=== PATIENT | male | born 1965 | race Caucasian/White ===

== ENCOUNTER 2021-04-12 21:16 | Inpatient (IN) | payer MEDICARE, MEDICAID ==
[~2021-04-12] VITALS: Ht 170.2 cm; Wt 118.8 kg
[2021-04-12 22:00] VITALS: BP 136/79
[2021-04-13] VITALS (8 sets, daily range): BP systolic 92–129; BP diastolic 60–75
[2021-04-13 06:30] LABS: BASOPHILS % 0.3 % (0.0-2.0); EOSINOPHILS % 2.8 % (0.0-5.0); HEMATOCRIT. 32.6 % (42.0-52.0); HEMOGLOBIN. 10.4 g/dL (14.0-18.0); LYMPHOCYTES % 8.4 % (20.0-50.0); MEAN CORPUSCULAR HEMOGLOBIN 25.8 pg (28.0-32.0); MEAN CORPUSCULAR VOLUME 81.2 fL (80.0-94.0); MEAN PLATELET VOLUME 7.7 fl (7.4-10.4); MONOCYTES % 6.5 % (2.0-8.0); PLATELET 334 x1000/uL (130-400); RED BLOOD CELL COUNT 4.02 mill/uL (4.7-6.1); RED CELL DISTRIBUTION WIDTH 21.9 % (11.6-14.6)
[2021-04-13] MEDS ORDERED: ATOR20TA65 PO (08:28)
[2021-04-13] MEDS ORDERED: TEMA15CA PO (08:28)
[2021-04-13] MEDS ORDERED: LANTUSUD SUBCUT (08:28)
[2021-04-13] MEDS ORDERED: COLL30OI TP (08:28)
[2021-04-13] MEDS ORDERED: TRAZ-251 PO (08:28)
[2021-04-13] MEDS ORDERED: FURO40TA5 PO (08:28)
[2021-04-13] MEDS ORDERED: ATOR10TA69 PO (08:28)
[2021-04-13] MEDS ORDERED: METF-416 PO ×2 (08:28→10:20)
[2021-04-13] MEDS ORDERED: SIMV10TA97 PO (08:28)
[2021-04-13] MEDS ORDERED: GABA800T97 PO (08:28)
[2021-04-13 08:30] LABS: CHLORIDE 100 mEq/L (98-107)
[2021-04-13] MEDS ORDERED: ATORVASTATIN CALCIUM 20MG TABLET PO SCH (09:15)
[2021-04-13] MEDS ORDERED: FUROSEMIDE 40MG TABLET PO SCH (09:15)
[2021-04-13] MEDS ORDERED: ENOXAPARIN 40MG/0.4ML SYR SUBCUT SCH (10:00)
[2021-04-13] MEDS ORDERED: DEXTROSE 50% WATER 50ML SYRINGE IV PRN (10:00)
[2021-04-13] MEDS ORDERED: ACETAMINOPHEN 325MG TABLET PO PRN (10:00)
[2021-04-13] MEDS ORDERED: MAGNESIUM/ALUMINUM HYDROXIDE/SIMETHICONE 30ML UDC PO PRN (10:00)
[2021-04-13] MEDS ORDERED: IPRATROPIUM/ALBUTEROL 0.5-3(2.5)MG/3ML NEB NEB PRN (10:00)
[2021-04-13] MEDS ORDERED: NITROGLYCERIN 0.4MG TABLET SL SL PRN (10:00)
[2021-04-13] MEDS ORDERED: GUAIFENESIN 200MG/10ML SUGAR FREE UDC PO PRN (10:00)
[2021-04-13] MEDS ORDERED: CLONIDINE 0.1MG TABLET PO PRN (10:00)
[2021-04-13] MEDS ORDERED: NALOXONE HCL 0.4MG/ML VIAL IV PRN (11:30)
[2021-04-13 12:26] LABS: FOLIC ACID (FOLATE) SERUM 19.8 ng/mL (>5.38)
[2021-04-13] MEDS: INSULIN LISPRO 100 UNITS/ML SUBCUT SCH ×3 (12:33→20:58)
[2021-04-13] MEDS: BLOOD SUGAR DIAGNOSTIC STRIP TEST SCH ×3 (12:33→20:58)
[2021-04-13] MEDS: GABAPENTIN SOLN 300MG/6ML UDC GT SCH ×2 (13:45→22:47)
[2021-04-13] MEDS: ENOXAPARIN 30MG/0.3ML SYR SUBCUT SCH ×2 (13:46→20:57)
[2021-04-13] MEDS ORDERED: GABAPENTIN 400MG CAPSULE PO SCH (14:00)
[2021-04-13 14:14] LABS: T4 FREE 1.18 ng/dL (0.76-1.46)
[2021-04-13] MEDS ORDERED: MEDICATION NOT ON FORMULARY EA (Metformin Hcl 1 TAB) PO SCH (17:00)
[2021-04-13 17:11] LABS: CREATINE KINASE 26 IU/L (39-308); CREATINE KINASE MB FRACTION 1.5 ng/mL (0.5-3.6)
[2021-04-13] MEDS: METFORMIN HCL 500MG TABLET GT SCH (18:09)
[2021-04-13] MEDS: ATORVASTATIN CALCIUM 10MG TABLET GT SCH (20:58)
[2021-04-13] MEDS: ASCORBIC ACID 500 MG TABLET PO SCH (20:58)
[2021-04-13] MEDS: TRAZODONE HCL 50MG TABLET GT SCH (20:58)
[2021-04-13] MEDS: FAMOTIDINE 20MG TABLET GT SCH (20:58)
[2021-04-13] MEDS ORDERED: MEDICATION NOT ON FORMULARY EA (Simvastatin 1 TAB) PO SCH (21:00)
[2021-04-13] MEDS ORDERED: TEMAZEPAM 15MG CAPSULE GT PRN (21:00)
[2021-04-13] MEDS: IPRATROPIUM/ALBUTEROL 0.5-3(2.5)MG/3ML NEB HHN SCH (21:06)
[2021-04-13] MEDS: INSULIN GLARGINE UD 100 UNITS/ML SYR SUBCUT SCH (21:16)
[2021-04-13 22:11] LABS: BG BASE EXCESS 7.1 mmol/L (-2.0-2.0); BG DEOXYHEMOGLOBIN 9.9 % (0.0-5.0); BG FRACTION INSPIRED OXYGEN 55; BG HCO3 ACT 32.6 mmol/L (22.0-26.0); BG METHEMOGLOBIN 0.4 % (0.0-1.5); BG OXYHEMOGLOBIN 88.7 % (94.0-97.0); BG PCO2 50.6 mmHg (35.0-45.0); BG PH 7.427 (7.350-7.450); BG PO2 62.6 mmHg (75.0-100.0); BG SAMPLE SITE RIGHT RADIAL; BG TOTAL HEMOGLOBIN 11.4 g/dL (12.0-18.0); BG VENT MODE VENT - AC
[2021-04-13] MEDS: ZOLPIDEM TARTRATE 5MG TABLET PO PRN (23:55)
[2021-04-14] VITALS (12 sets, daily range): BP systolic 62–117; BP diastolic 34–77
[2021-04-14 00:22] LABS: CREATINE KINASE 24 IU/L (39-308)
[2021-04-14 00:23] LABS: CREATINE KINASE MB FRACTION 1.4 ng/mL (0.5-3.6)
[2021-04-14] MEDS: IPRATROPIUM/ALBUTEROL 0.5-3(2.5)MG/3ML NEB HHN SCH ×4 (01:43→20:08)
[2021-04-14 03:34] LABS: CLARITY URINE TURBID (CLEAR); COLOR URINE DARK YELLOW (YELLOW); KETONES URINE NEGATIVE (NEGATIVE); LEUKOCYTE ESTERASE URINE 3+ (NEGATIVE); NITRITE URINE NEGATIVE (NEGATIVE); OCCULT BLOOD URINE 3+ (NEGATIVE); PROTEIN URINE 2+ (NEGATIVE); SPECIFIC GRAVITY URINE 1.021 (1.005-1.030); UROBILINOGEN URINE 0.2 E.U./dL (0.2-1.0)
[2021-04-14] MEDS: GABAPENTIN SOLN 300MG/6ML UDC GT SCH ×3 (05:19→21:29)
[2021-04-14] MEDS: INSULIN LISPRO 100 UNITS/ML SUBCUT SCH ×3 (08:00→18:00)
[2021-04-14] MEDS: BLOOD SUGAR DIAGNOSTIC STRIP TEST SCH ×3 (08:00→18:01)
[2021-04-14 08:41] LABS: BASOPHILS % 0.6 % (0.0-2.0); EOSINOPHILS % 3.5 % (0.0-5.0); HEMATOCRIT. 33.6 % (42.0-52.0); HEMOGLOBIN. 10.6 g/dL (14.0-18.0); LYMPHOCYTES % 7.9 % (20.0-50.0); MEAN CORPUSCULAR HEMOGLOBIN 25.7 pg (28.0-32.0); MEAN CORPUSCULAR VOLUME 81.1 fL (80.0-94.0); MEAN PLATELET VOLUME 7.5 fl (7.4-10.4); MONOCYTES % 6.9 % (2.0-8.0); NEUTROPHILS % 81.1 % (40.0-76.0); PLATELET 355 x1000/uL (130-400); RED BLOOD CELL COUNT 4.14 mill/uL (4.7-6.1); RED CELL DISTRIBUTION WIDTH 21.3 % (11.6-14.6)
[2021-04-14] MEDS: FUROSEMIDE 40MG/4ML VIAL IVP SCH (08:58)
[2021-04-14] MEDS: FAMOTIDINE 20MG TABLET GT SCH ×2 (08:58→21:29)
[2021-04-14] MEDS: METFORMIN HCL 500MG TABLET GT SCH ×2 (08:58→18:04)
[2021-04-14] MEDS: ASCORBIC ACID 500 MG TABLET PO SCH ×2 (08:58→21:29)
[2021-04-14] MEDS: ZINC SULFATE 220 MG ( 50 ) CAPSULE GT SCH (08:58)
[2021-04-14] MEDS ORDERED: MEDICATION NOT ON FORMULARY EA (Gabapentin 1 TAB) PO SCH (09:00)
[2021-04-14] MEDS: ENOXAPARIN 30MG/0.3ML SYR SUBCUT SCH ×2 (09:00→21:28)
[2021-04-14 09:05] LABS: BG CARBOXYHEMOGLOBIN 1.1 % (0.5-1.5); BG FRACTION INSPIRED OXYGEN 60; BG HCO3 ACT 29.6 mmol/L (22.0-26.0); BG METHEMOGLOBIN 0.2 % (0.0-1.5); BG OXYGEN SATURATION 87.8 % (92.0-98.5); BG OXYHEMOGLOBIN 86.7 % (94.0-97.0); BG PCO2 43.5 mmHg (35.0-45.0); BG SAMPLE SITE RIGHT BRACHIAL; BG TOTAL HEMOGLOBIN 11.6 g/dL (12.0-18.0); BG VENT MODE VENT - AC
[2021-04-14 09:27] LABS: CHLORIDE 100 mEq/L (98-107)
[2021-04-14 09:34] LABS: PHOSPHORUS 4.2 mg/dL (2.5-4.9)
[2021-04-14 09:35] LABS: LDL CHOLESTEROL 96 mg/dL (5-100)
[2021-04-14 09:37] LABS: HDL CHOLESTEROL 28 mg/dL (40-59)
[2021-04-14] MEDS: LEVOFLOXACIN 500MG PREMIX 100 ML IV SCH (11:26)
[2021-04-14] MEDS: DOCUSATE SODIUM 100MG CAPSULE PO PRN (13:58)
[2021-04-14] MEDS: ATORVASTATIN CALCIUM 10MG TABLET GT SCH (21:29)
[2021-04-14] MEDS: TRAZODONE HCL 50MG TABLET GT SCH (21:29)
[2021-04-14] MEDS: INSULIN GLARGINE UD 100 UNITS/ML SYR SUBCUT SCH (22:44)
[2021-04-14] MEDS: ZOLPIDEM TARTRATE 5MG TABLET PO PRN (22:45)
[2021-04-15] VITALS (13 sets, daily range): BP systolic 87–149; BP diastolic 47–114
[2021-04-15] MEDS: BLOOD SUGAR DIAGNOSTIC STRIP TEST SCH ×5 (00:20→23:58)
[2021-04-15] MEDS: IPRATROPIUM/ALBUTEROL 0.5-3(2.5)MG/3ML NEB HHN SCH ×4 (01:53→20:08)
[2021-04-15] MEDS: GABAPENTIN SOLN 300MG/6ML UDC GT SCH ×2 (05:05→13:19)
[2021-04-15 05:53] LABS: HEMATOCRIT. 33.9 % (42.0-52.0); HEMOGLOBIN. 10.7 g/dL (14.0-18.0); MEAN CORPUSCULAR HEMOGLOBIN 25.8 pg (28.0-32.0); MEAN CORPUSCULAR VOLUME 81.4 fL (80.0-94.0); MEAN PLATELET VOLUME 7.8 fl (7.4-10.4); PLATELET 319 x1000/uL (130-400); RED BLOOD CELL COUNT 4.17 mill/uL (4.7-6.1); RED CELL DISTRIBUTION WIDTH 21.5 % (11.6-14.6)
[2021-04-15] MEDS: INSULIN LISPRO 100 UNITS/ML SUBCUT SCH ×5 (06:00→23:58)
[2021-04-15 06:59] LABS: CHLORIDE 100 mEq/L (98-107)
[2021-04-15] MEDS: FUROSEMIDE 40MG/4ML VIAL IVP SCH (08:41)
[2021-04-15] MEDS: ASCORBIC ACID 500 MG TABLET PO SCH ×2 (08:41→21:17)
[2021-04-15] MEDS: FAMOTIDINE 20MG TABLET GT SCH ×2 (08:41→21:17)
[2021-04-15] MEDS: ZINC SULFATE 220 MG ( 50 ) CAPSULE GT SCH (08:41)
[2021-04-15] MEDS: METFORMIN HCL 500MG TABLET GT SCH ×2 (08:41→17:47)
[2021-04-15] MEDS: ENOXAPARIN 30MG/0.3ML SYR SUBCUT SCH ×2 (08:41→21:17)
[2021-04-15 10:47] LABS: BG BASE EXCESS 8.1 mmol/L (-2.0-2.0); BG CARBOXYHEMOGLOBIN 0.8 % (0.5-1.5); BG DEOXYHEMOGLOBIN 5.5 % (0.0-5.0); BG FRACTION INSPIRED OXYGEN 80; BG HCO3 ACT 33.9 mmol/L (22.0-26.0); BG METHEMOGLOBIN 0.3 % (0.0-1.5); BG OXYGEN SATURATION 94.4 % (92.0-98.5); BG OXYHEMOGLOBIN 93.4 % (94.0-97.0); BG PCO2 52.9 mmHg (35.0-45.0); BG PH 7.424 (7.350-7.450); BG PO2 81.6 mmHg (75.0-100.0); BG SAMPLE SITE RIGHT RADIAL; BG TOTAL HEMOGLOBIN 11.2 g/dL (12.0-18.0); BG VENT MODE VENT - AC
[2021-04-15] MEDS: LEVOFLOXACIN 500MG PREMIX 100 ML IV SCH (11:14)
[2021-04-15] MEDS: MIDODRINE HCL 5MG TABLET PO SCH ×2 (13:12→17:47)
[2021-04-15] MEDS: HYDROCODONE/ACETAMINOPHEN 5/325MG TABLET GT PRN (13:12)
[2021-04-15 13:18] LABS: PLATELET ESTIMATE NORMAL
[2021-04-15] MEDS: MEROPENEM 1,000 MG in SODIUM CHLORIDE 0.9% 100 ML IV SCH ×2 (17:47→23:58)
[2021-04-15] MEDS: MONTELUKAST SODIUM 10MG TABLET PO SCH (17:47)
[2021-04-15] MEDS: QUETIAPINE FUMARATE 50MG TABLET PO SCH (21:17)
[2021-04-15] MEDS: BUPROPION HCL 75MG TABLET PO SCH (21:17)
[2021-04-15] MEDS: TRAZODONE HCL 50MG TABLET GT SCH (21:20)
[2021-04-15] MEDS: ATORVASTATIN CALCIUM 10MG TABLET GT SCH (21:20)
[2021-04-16] VITALS (13 sets, daily range): BP systolic 80–123; BP diastolic 54–80
[2021-04-16] MEDS: INSULIN GLARGINE UD 100 UNITS/ML SYR SUBCUT SCH ×2 (00:03→21:28)
[2021-04-16] MEDS: GABAPENTIN SOLN 300MG/6ML UDC GT SCH ×4 (00:06→21:29)
[2021-04-16] MEDS: IPRATROPIUM/ALBUTEROL 0.5-3(2.5)MG/3ML NEB HHN SCH ×4 (02:06→20:18)
[2021-04-16] MEDS: MIDODRINE HCL 5MG TABLET PO SCH ×3 (04:11→17:51)
[2021-04-16] MEDS: BLOOD SUGAR DIAGNOSTIC STRIP TEST SCH ×3 (05:20→18:25)
[2021-04-16] MEDS: INSULIN LISPRO 100 UNITS/ML SUBCUT SCH ×3 (05:22→18:00)
[2021-04-16 06:32] LABS: CHLORIDE 100 mEq/L (98-107)
[2021-04-16 06:36] LABS: BASOPHILS % 0.5 % (0.0-2.0); HEMATOCRIT. 36.2 % (42.0-52.0); HEMOGLOBIN. 10.9 g/dL (14.0-18.0); LYMPHOCYTES % 9.6 % (20.0-50.0); MEAN CORPUSCULAR HEMOGLOBIN 26.3 pg (28.0-32.0); MEAN CORPUSCULAR VOLUME 87.8 fL (80.0-94.0); MEAN PLATELET VOLUME 8.6 fl (7.4-10.4); MONOCYTES % 7.2 % (2.0-8.0); NEUTROPHILS % 79.7 % (40.0-76.0); PLATELET 57 x1000/uL (130-400); RED BLOOD CELL COUNT 4.12 mill/uL (4.7-6.1)
[2021-04-16] MEDS: METFORMIN HCL 500MG TABLET GT SCH ×2 (08:08→17:51)
[2021-04-16] MEDS: ASCORBIC ACID 500 MG TABLET PO SCH ×2 (08:09→20:57)
[2021-04-16] MEDS: ZINC SULFATE 220 MG ( 50 ) CAPSULE GT SCH (08:09)
[2021-04-16] MEDS: BUPROPION HCL 75MG TABLET PO SCH ×2 (08:09→20:58)
[2021-04-16] MEDS: QUETIAPINE FUMARATE 50MG TABLET PO SCH ×2 (08:09→20:59)
[2021-04-16] MEDS: FAMOTIDINE 20MG TABLET GT SCH ×2 (08:10→20:57)
[2021-04-16] MEDS: MEROPENEM 1,000 MG in SODIUM CHLORIDE 0.9% 100 ML IV SCH ×2 (08:21→17:52)
[2021-04-16] MEDS: DOCUSATE SODIUM SUGAR FREE 100MG/10ML UDC NG SCH ×2 (08:21→17:51)
[2021-04-16] MEDS ORDERED: PREDNISONE 5MG TABLET PO SCH (09:00)
[2021-04-16] MEDS: HYDROCODONE/ACETAMINOPHEN 5/325MG TABLET GT PRN (09:46)
[2021-04-16 10:40] LABS: BG BASE EXCESS 8.4 mmol/L (-2.0-2.0); BG CARBOXYHEMOGLOBIN 0.8 % (0.5-1.5); BG DEOXYHEMOGLOBIN 9.3 % (0.0-5.0); BG FRACTION INSPIRED OXYGEN 90; BG HCO3 ACT 33.9 mmol/L (22.0-26.0); BG METHEMOGLOBIN 0.3 % (0.0-1.5); BG OXYGEN SATURATION 90.6 % (92.0-98.5); BG OXYHEMOGLOBIN 89.6 % (94.0-97.0); BG PH 7.432 (7.350-7.450); BG PO2 65.6 mmHg (75.0-100.0); BG SAMPLE SITE RIGHT BRACHIAL; BG TOTAL HEMOGLOBIN 10.6 g/dL (12.0-18.0); BG TOTAL RESPIRATORY RATE 26 b/min; BG VENT MODE VENT - AC
[2021-04-16] MEDS: METHYLPREDNISOLONE SOD SUCC 40 MG/ML VIAL IV SCH ×2 (14:22→23:49)
[2021-04-16 16:31] LABS: INR 1.1; PROTHROMBIN TIME 11.4 sec (9.6-11.0)
[2021-04-16] MEDS: MONTELUKAST SODIUM 10MG TABLET PO SCH (17:51)
[2021-04-16] MEDS: TRAZODONE HCL 50MG TABLET GT SCH (20:57)
[2021-04-16] MEDS: ATORVASTATIN CALCIUM 10MG TABLET GT SCH (20:57)
[2021-04-16] MEDS: AMPICILLIN SOD/SULBACTAM NA 3 G in SODIUM CHLORIDE 0.9% 100 ML IV SCH (21:28)
[2021-04-16] MEDS: ZOLPIDEM TARTRATE 5MG TABLET PO PRN (23:58)
[2021-04-17] VITALS (12 sets, daily range): BP systolic 87–108; BP diastolic 54–69
[2021-04-17] MEDS: IPRATROPIUM/ALBUTEROL 0.5-3(2.5)MG/3ML NEB HHN SCH ×4 (00:30→20:50)
[2021-04-17] MEDS: AMPICILLIN SOD/SULBACTAM NA 3 G in SODIUM CHLORIDE 0.9% 100 ML IV SCH ×4 (03:36→20:59)
[2021-04-17] MEDS: BLOOD SUGAR DIAGNOSTIC STRIP TEST SCH ×5 (06:26→23:57)
[2021-04-17] MEDS: GABAPENTIN SOLN 300MG/6ML UDC GT SCH ×3 (06:26→21:00)
[2021-04-17 06:35] LABS: HEMATOCRIT. 30.8 % (42.0-52.0); HEMOGLOBIN. 9.7 g/dL (14.0-18.0); MEAN CORPUSCULAR HEMOGLOBIN 25.4 pg (28.0-32.0); MEAN CORPUSCULAR VOLUME 80.7 fL (80.0-94.0); MEAN PLATELET VOLUME 8.1 fl (7.4-10.4); PLATELET 231 x1000/uL (130-400); RED BLOOD CELL COUNT 3.82 mill/uL (4.7-6.1); RED CELL DISTRIBUTION WIDTH 21.1 % (11.6-14.6)
[2021-04-17 07:18] LABS: CHLORIDE 99 mEq/L (98-107)
[2021-04-17] MEDS: INSULIN LISPRO 100 UNITS/ML SUBCUT SCH ×4 (08:02→17:30)
[2021-04-17] MEDS: METFORMIN HCL 500MG TABLET GT SCH ×2 (08:03→17:28)
[2021-04-17] MEDS: ZINC SULFATE 220 MG ( 50 ) CAPSULE GT SCH (08:03)
[2021-04-17] MEDS: BUPROPION HCL 75MG TABLET PO SCH ×2 (08:03→21:04)
[2021-04-17] MEDS: DOCUSATE SODIUM SUGAR FREE 100MG/10ML UDC NG SCH ×2 (08:03→17:28)
[2021-04-17] MEDS: FAMOTIDINE 20MG TABLET GT SCH ×2 (08:03→20:58)
[2021-04-17] MEDS: MIDODRINE HCL 5MG TABLET PO SCH ×3 (08:04→17:28)
[2021-04-17] MEDS: QUETIAPINE FUMARATE 50MG TABLET PO SCH ×2 (08:04→20:59)
[2021-04-17] MEDS: ASCORBIC ACID 500 MG TABLET PO SCH ×2 (08:04→20:59)
[2021-04-17 09:06] LABS: BG BASE EXCESS 1.7 mmol/L (-2.0-2.0); BG CARBOXYHEMOGLOBIN 0.3 % (0.5-1.5); BG DEOXYHEMOGLOBIN 5.4 % (0.0-5.0); BG FRACTION INSPIRED OXYGEN 90; BG HCO3 ACT 26.6 mmol/L (22.0-26.0); BG METHEMOGLOBIN 0.3 % (0.0-1.5); BG OXYGEN SATURATION 94.6 % (92.0-98.5); BG PCO2 43.5 mmHg (35.0-45.0); BG PH 7.405 (7.350-7.450); BG SAMPLE SITE LEFT RADIAL; BG TOTAL HEMOGLOBIN 10.3 g/dL (12.0-18.0); BG TOTAL RESPIRATORY RATE 24 b/min; BG VENT MODE VENT - AC
[2021-04-17] MEDS: METHYLPREDNISOLONE SOD SUCC 40 MG/ML VIAL IV SCH ×2 (09:56→20:59)
[2021-04-17] MEDS ORDERED: SODIUM POLYSTYRENE SULFONATE 15 G/60 ML BOT PO NR (13:00)
[2021-04-17] MEDS: MONTELUKAST SODIUM 10MG TABLET PO SCH (17:28)
[2021-04-17 19:00] LABS: INR 1.1; PROTHROMBIN TIME 11.7 sec (9.6-11.0)
[2021-04-17] MEDS: TRAZODONE HCL 50MG TABLET GT SCH (20:58)
[2021-04-17] MEDS: ATORVASTATIN CALCIUM 10MG TABLET GT SCH (20:58)
[2021-04-17] MEDS: NITROFURANTOIN 100MG M/M CAPSULE PO SCH (21:04)
[2021-04-17] MEDS: ENOXAPARIN 30MG/0.3ML SYR SUBCUT SCH (21:23)
[2021-04-17 21:32] LABS: PLATELET ESTIMATE NORMAL
[2021-04-17] MEDS: INSULIN GLARGINE UD 100 UNITS/ML SYR SUBCUT SCH (22:24)
[2021-04-18] VITALS (12 sets, daily range): BP systolic 75–138; BP diastolic 53–72
[2021-04-18] MEDS: INSULIN LISPRO 100 UNITS/ML SUBCUT SCH ×4 (00:05→18:43)
[2021-04-18] MEDS: ZOLPIDEM TARTRATE 5MG TABLET PO PRN (00:13)
[2021-04-18] MEDS: LORAZEPAM 2MG/ML CPJ IV PRN (00:21)
[2021-04-18] MEDS: IPRATROPIUM/ALBUTEROL 0.5-3(2.5)MG/3ML NEB HHN SCH ×4 (01:10→18:00)
[2021-04-18] MEDS: AMPICILLIN SOD/SULBACTAM NA 3 G in SODIUM CHLORIDE 0.9% 100 ML IV SCH ×4 (02:04→21:19)
[2021-04-18] MEDS: GABAPENTIN SOLN 300MG/6ML UDC GT SCH ×3 (06:00→21:19)
[2021-04-18] MEDS: BLOOD SUGAR DIAGNOSTIC STRIP TEST SCH ×3 (06:01→18:43)
[2021-04-18 06:31] LABS: CHLORIDE 102 mEq/L (98-107)
[2021-04-18] MEDS: ENOXAPARIN 30MG/0.3ML SYR SUBCUT SCH ×2 (08:14→21:20)
[2021-04-18] MEDS: METHYLPREDNISOLONE SOD SUCC 40 MG/ML VIAL IV SCH ×2 (08:14→21:19)
[2021-04-18] MEDS: NITROFURANTOIN 100MG M/M CAPSULE PO SCH ×2 (08:15→21:20)
[2021-04-18] MEDS: FAMOTIDINE 20MG TABLET GT SCH ×2 (08:15→21:20)
[2021-04-18] MEDS: BUPROPION HCL 75MG TABLET PO SCH ×2 (08:15→21:20)
[2021-04-18] MEDS: QUETIAPINE FUMARATE 50MG TABLET PO SCH ×2 (08:15→21:20)
[2021-04-18] MEDS: ZINC SULFATE 220 MG ( 50 ) CAPSULE GT SCH (08:15)
[2021-04-18] MEDS: MIDODRINE HCL 5MG TABLET PO SCH ×3 (08:15→16:56)
[2021-04-18] MEDS: METFORMIN HCL 500MG TABLET GT SCH ×2 (08:15→17:06)
[2021-04-18] MEDS: ASCORBIC ACID 500 MG TABLET PO SCH ×2 (08:15→21:20)
[2021-04-18] MEDS: DOCUSATE SODIUM SUGAR FREE 100MG/10ML UDC NG SCH ×2 (08:23→16:55)
[2021-04-18 08:56] LABS: HEMOGLOBIN. 9.3 g/dL (14.0-18.0); MEAN CORPUSCULAR HEMOGLOBIN 25.9 pg (28.0-32.0); MEAN CORPUSCULAR VOLUME 81.1 fL (80.0-94.0); PLATELET 257 x1000/uL (130-400); RED BLOOD CELL COUNT 3.58 mill/uL (4.7-6.1); RED CELL DISTRIBUTION WIDTH 21.7 % (11.6-14.6)
[2021-04-18 11:41] LABS: BG BASE EXCESS 7.4 mmol/L (-2.0-2.0); BG CARBOXYHEMOGLOBIN 0.1 % (0.5-1.5); BG DEOXYHEMOGLOBIN 6.2 % (0.0-5.0); BG FRACTION INSPIRED OXYGEN 90; BG HCO3 ACT 32.5 mmol/L (22.0-26.0); BG METHEMOGLOBIN 0.2 % (0.0-1.5); BG OXYGEN SATURATION 93.8 % (92.0-98.5); BG OXYHEMOGLOBIN 93.5 % (94.0-97.0); BG PCO2 48.6 mmHg (35.0-45.0); BG PH 7.443 (7.350-7.450); BG PO2 73.4 mmHg (75.0-100.0); BG SAMPLE SITE RIGHT RADIAL; BG TOTAL HEMOGLOBIN 10.5 g/dL (12.0-18.0); BG VENT MODE VENT - AC
[2021-04-18] MEDS ORDERED: SODIUM POLYSTYRENE SULFONATE 15 G/60 ML BOT PO NR (12:00)
[2021-04-18] MEDS ORDERED: MIDODRINE HCL 5MG TABLET PO SCH (12:15)
[2021-04-18 15:59] LABS: PLATELET ESTIMATE NORMAL
[2021-04-18] MEDS: MONTELUKAST SODIUM 10MG TABLET PO SCH (16:55)
[2021-04-18] MEDS: BUDESONIDE 0.5MG/2ML NEB HHN SCH (21:15)
[2021-04-18] MEDS: TRAZODONE HCL 50MG TABLET GT SCH (21:20)
[2021-04-18] MEDS: ATORVASTATIN CALCIUM 10MG TABLET GT SCH (21:20)
[2021-04-18] MEDS: INSULIN GLARGINE UD 100 UNITS/ML SYR SUBCUT SCH (21:40)
[2021-04-19] VITALS (13 sets, daily range): BP systolic 80–109; BP diastolic 40–62
[2021-04-19] MEDS: BLOOD SUGAR DIAGNOSTIC STRIP TEST SCH ×4 (00:34→17:14)
[2021-04-19] MEDS: ZOLPIDEM TARTRATE 5MG TABLET PO PRN (00:35)
[2021-04-19] MEDS: ACETAMINOPHEN 325MG TABLET PO PRN (01:17)
[2021-04-19] MEDS: IPRATROPIUM/ALBUTEROL 0.5-3(2.5)MG/3ML NEB HHN SCH ×4 (01:35→20:48)
[2021-04-19] MEDS: AMPICILLIN SOD/SULBACTAM NA 3 G in SODIUM CHLORIDE 0.9% 100 ML IV SCH ×4 (03:23→20:56)
[2021-04-19] MEDS: INSULIN LISPRO 100 UNITS/ML SUBCUT SCH ×4 (05:15→18:00)
[2021-04-19] MEDS: GABAPENTIN SOLN 300MG/6ML UDC GT SCH ×3 (05:15→20:56)
[2021-04-19] MEDS: LORAZEPAM 2MG/ML CPJ IV PRN (05:17)
[2021-04-19 06:59] LABS: CHLORIDE 103 mEq/L (98-107)
[2021-04-19 07:31] LABS: BG BASE EXCESS 9.4 mmol/L (-2.0-2.0); BG CARBOXYHEMOGLOBIN 0.1 % (0.5-1.5); BG DEOXYHEMOGLOBIN 8.5 % (0.0-5.0); BG HCO3 ACT 35.5 mmol/L (22.0-26.0); BG METHEMOGLOBIN 0.3 % (0.0-1.5); BG OXYGEN SATURATION 91.5 % (92.0-98.5); BG OXYHEMOGLOBIN 91.1 % (94.0-97.0); BG PCO2 56.1 mmHg (35.0-45.0); BG PH 7.419 (7.350-7.450); BG PO2 68.9 mmHg (75.0-100.0); BG SAMPLE SITE RIGHT RADIAL; BG TOTAL HEMOGLOBIN 10.8 g/dL (12.0-18.0); BG VENT MODE VENT - AC
[2021-04-19] MEDS: MIDODRINE HCL 5MG TABLET PO SCH ×3 (09:08→17:14)
[2021-04-19] MEDS: BUPROPION HCL 75MG TABLET PO SCH ×2 (09:08→20:55)
[2021-04-19] MEDS: METFORMIN HCL 500MG TABLET GT SCH ×2 (09:08→17:13)
[2021-04-19] MEDS: QUETIAPINE FUMARATE 50MG TABLET PO SCH ×2 (09:10→20:55)
[2021-04-19] MEDS: NITROFURANTOIN 100MG M/M CAPSULE PO SCH ×2 (09:10→20:55)
[2021-04-19] MEDS: ZINC SULFATE 220 MG ( 50 ) CAPSULE GT SCH (09:10)
[2021-04-19] MEDS: DOCUSATE SODIUM 100MG CAPSULE PO PRN (09:10)
[2021-04-19] MEDS: METHYLPREDNISOLONE SOD SUCC 40 MG/ML VIAL IV SCH ×2 (09:10→20:56)
[2021-04-19] MEDS: ASCORBIC ACID 500 MG TABLET PO SCH ×2 (09:10→20:55)
[2021-04-19] MEDS: FAMOTIDINE 20MG TABLET GT SCH ×2 (09:10→20:55)
[2021-04-19] MEDS: ENOXAPARIN 30MG/0.3ML SYR SUBCUT SCH ×2 (09:11→20:56)
[2021-04-19] MEDS: DOCUSATE SODIUM SUGAR FREE 100MG/10ML UDC NG SCH ×2 (09:17→17:13)
[2021-04-19 09:33] LABS: BASOPHILS % 0.5 % (0.0-2.0); EOSINOPHILS % 2.6 % (0.0-5.0); HEMATOCRIT. 31.1 % (42.0-52.0); HEMOGLOBIN. 9.9 g/dL (14.0-18.0); LYMPHOCYTES % 14.1 % (20.0-50.0); MEAN CORPUSCULAR HEMOGLOBIN 25.7 pg (28.0-32.0); MEAN CORPUSCULAR VOLUME 80.5 fL (80.0-94.0); MONOCYTES % 6.1 % (2.0-8.0); NEUTROPHILS % 76.7 % (40.0-76.0); PLATELET 273 x1000/uL (130-400); RED BLOOD CELL COUNT 3.87 mill/uL (4.7-6.1); RED CELL DISTRIBUTION WIDTH 21.3 % (11.6-14.6)
[2021-04-19] MEDS ORDERED: MIDODRINE HCL 5MG TABLET PO NR (10:30)
[2021-04-19] MEDS: BUDESONIDE 0.5MG/2ML NEB HHN SCH (13:26)
[2021-04-19] MEDS ORDERED: SODIUM POLYSTYRENE SULFONATE 15 G/60 ML BOT PO NR (16:00)
[2021-04-19] MEDS: MONTELUKAST SODIUM 10MG TABLET PO SCH (17:14)
[2021-04-19] MEDS: ATORVASTATIN CALCIUM 10MG TABLET GT SCH (20:55)
[2021-04-19] MEDS: TRAZODONE HCL 50MG TABLET GT SCH (20:55)
[2021-04-20] VITALS (17 sets, daily range): BP systolic 64–150; BP diastolic 28–98
[2021-04-20] MEDS: ZOLPIDEM TARTRATE 5MG TABLET PO PRN ×2 (00:02→21:00)
[2021-04-20] MEDS: ACETAMINOPHEN 325MG TABLET PO PRN ×2 (00:02→08:59)
[2021-04-20] MEDS: INSULIN GLARGINE UD 100 UNITS/ML SYR SUBCUT SCH ×2 (00:02→20:58)
[2021-04-20] MEDS: BLOOD SUGAR DIAGNOSTIC STRIP TEST SCH ×4 (00:03→18:02)
[2021-04-20] MEDS: BUDESONIDE 0.5MG/2ML NEB HHN SCH ×3 (00:55→20:53)
[2021-04-20] MEDS ORDERED: MIDODRINE HCL 5MG TABLET PO NR (01:15)
[2021-04-20] MEDS: LORAZEPAM 2MG/ML CPJ IV PRN (02:15)
[2021-04-20] MEDS: ACETYLCYSTEINE 100MG/ML 10% VIAL 4ML INH SCH ×3 (02:25→16:16)
[2021-04-20] MEDS: IPRATROPIUM/ALBUTEROL 0.5-3(2.5)MG/3ML NEB HHN SCH ×4 (02:25→20:54)
[2021-04-20] MEDS: AMPICILLIN SOD/SULBACTAM NA 3 G in SODIUM CHLORIDE 0.9% 100 ML IV SCH ×4 (03:27→20:58)
[2021-04-20] MEDS: GABAPENTIN SOLN 300MG/6ML UDC GT SCH ×3 (05:54→21:03)
[2021-04-20] MEDS: INSULIN LISPRO 100 UNITS/ML SUBCUT SCH ×4 (06:08→18:29)
[2021-04-20 06:49] LABS: CHLORIDE 104 mEq/L (98-107); HEMATOCRIT. 30.7 % (42.0-52.0); HEMOGLOBIN. 9.8 g/dL (14.0-18.0); MEAN CORPUSCULAR VOLUME 81.2 fL (80.0-94.0); MEAN PLATELET VOLUME 8.4 fl (7.4-10.4); PLATELET 261 x1000/uL (130-400); RED BLOOD CELL COUNT 3.78 mill/uL (4.7-6.1); RED CELL DISTRIBUTION WIDTH 21.3 % (11.6-14.6)
[2021-04-20] MEDS: DOCUSATE SODIUM SUGAR FREE 100MG/10ML UDC NG SCH ×2 (08:58→18:01)
[2021-04-20] MEDS: METHYLPREDNISOLONE SOD SUCC 40 MG/ML VIAL IV SCH ×2 (08:58→20:59)
[2021-04-20] MEDS: METFORMIN HCL 500MG TABLET GT SCH ×2 (08:58→18:02)
[2021-04-20] MEDS: ENOXAPARIN 30MG/0.3ML SYR SUBCUT SCH ×2 (08:58→20:59)
[2021-04-20] MEDS: NITROFURANTOIN 100MG M/M CAPSULE PO SCH ×2 (08:59→20:59)
[2021-04-20] MEDS: BUPROPION HCL 75MG TABLET PO SCH ×2 (08:59→20:59)
[2021-04-20] MEDS: ASCORBIC ACID 500 MG TABLET PO SCH ×2 (08:59→20:59)
[2021-04-20] MEDS: ZINC SULFATE 220 MG ( 50 ) CAPSULE GT SCH (08:59)
[2021-04-20] MEDS: QUETIAPINE FUMARATE 50MG TABLET PO SCH ×2 (08:59→21:00)
[2021-04-20 09:06] LABS: BG BASE EXCESS 5.2 mmol/L (-2.0-2.0); BG CARBOXYHEMOGLOBIN 0.4 % (0.5-1.5); BG DEOXYHEMOGLOBIN 7.2 % (0.0-5.0); BG FRACTION INSPIRED OXYGEN 100; BG HCO3 ACT 29.8 mmol/L (22.0-26.0); BG METHEMOGLOBIN 0.3 % (0.0-1.5); BG OXYGEN SATURATION 92.7 % (92.0-98.5); BG OXYHEMOGLOBIN 92.1 % (94.0-97.0); BG PCO2 43.9 mmHg (35.0-45.0); BG PH 7.449 (7.350-7.450); BG PO2 71.6 mmHg (75.0-100.0); BG TOTAL HEMOGLOBIN 10.2 g/dL (12.0-18.0); BG VENT MODE VENT - AC
[2021-04-20] MEDS: FAMOTIDINE 20MG TABLET GT SCH ×2 (09:09→20:59)
[2021-04-20] MEDS: MIDODRINE HCL 5MG TABLET PO SCH ×3 (09:09→18:02)
[2021-04-20 14:29] LABS: PLATELET ESTIMATE NORMAL
[2021-04-20] MEDS: MONTELUKAST SODIUM 10MG TABLET PO SCH (18:02)
[2021-04-20] MEDS: ATORVASTATIN CALCIUM 10MG TABLET GT SCH (21:01)
[2021-04-20] MEDS: TRAZODONE HCL 50MG TABLET GT SCH (21:01)
[2021-04-21] VITALS (12 sets, daily range): BP systolic 92–140; BP diastolic 60–78
[2021-04-21] MEDS: IPRATROPIUM/ALBUTEROL 0.5-3(2.5)MG/3ML NEB HHN SCH ×4 (00:55→20:19)
[2021-04-21] MEDS: ACETYLCYSTEINE 100MG/ML 10% VIAL 4ML INH SCH ×3 (00:55→14:01)
[2021-04-21] MEDS: AMPICILLIN SOD/SULBACTAM NA 3 G in SODIUM CHLORIDE 0.9% 100 ML IV SCH ×4 (03:55→21:41)
[2021-04-21] MEDS: BLOOD SUGAR DIAGNOSTIC STRIP TEST SCH ×4 (05:29→18:13)
[2021-04-21] MEDS: INSULIN LISPRO 100 UNITS/ML SUBCUT SCH ×4 (05:29→18:17)
[2021-04-21] MEDS: GABAPENTIN SOLN 300MG/6ML UDC GT SCH ×3 (05:38→22:49)
[2021-04-21] MEDS: BUDESONIDE 0.5MG/2ML NEB HHN SCH (08:41)
[2021-04-21] MEDS: METFORMIN HCL 500MG TABLET GT SCH ×2 (09:24→17:13)
[2021-04-21] MEDS: FAMOTIDINE 20MG TABLET GT SCH ×2 (09:24→21:41)
[2021-04-21] MEDS: ASCORBIC ACID 500 MG TABLET PO SCH ×2 (09:24→21:41)
[2021-04-21] MEDS: ENOXAPARIN 30MG/0.3ML SYR SUBCUT SCH ×2 (09:24→21:40)
[2021-04-21] MEDS: DOCUSATE SODIUM SUGAR FREE 100MG/10ML UDC NG SCH ×2 (09:24→17:13)
[2021-04-21] MEDS: METHYLPREDNISOLONE SOD SUCC 40 MG/ML VIAL IV SCH ×2 (09:24→21:41)
[2021-04-21] MEDS: ZINC SULFATE 220 MG ( 50 ) CAPSULE GT SCH (09:24)
[2021-04-21] MEDS: QUETIAPINE FUMARATE 50MG TABLET PO SCH ×2 (09:24→21:41)
[2021-04-21] MEDS: BUPROPION HCL 75MG TABLET PO SCH ×2 (09:24→21:40)
[2021-04-21] MEDS: NITROFURANTOIN 100MG M/M CAPSULE PO SCH ×2 (09:24→21:41)
[2021-04-21] MEDS: MIDODRINE HCL 5MG TABLET PO SCH ×3 (09:25→17:00)
[2021-04-21] MEDS: COLISTIMETHATE SODIUM 150MG/VIAL INH SCH ×2 (10:26→20:19)
[2021-04-21] MEDS: MONTELUKAST SODIUM 10MG TABLET PO SCH (17:13)
[2021-04-21] MEDS: TRAZODONE HCL 50MG TABLET GT SCH (21:41)
[2021-04-21] MEDS: ATORVASTATIN CALCIUM 10MG TABLET GT SCH (21:46)
[2021-04-22] VITALS (12 sets, daily range): BP systolic 104–136; BP diastolic 57–80
[2021-04-22] MEDS: BLOOD SUGAR DIAGNOSTIC STRIP TEST SCH ×4 (00:23→18:13)
[2021-04-22] MEDS: INSULIN GLARGINE UD 100 UNITS/ML SYR SUBCUT SCH ×2 (00:23→21:10)
[2021-04-22] MEDS: IPRATROPIUM/ALBUTEROL 0.5-3(2.5)MG/3ML NEB HHN SCH ×4 (02:11→21:23)
[2021-04-22] MEDS: ACETYLCYSTEINE 100MG/ML 10% VIAL 4ML INH SCH (02:11)
[2021-04-22] MEDS: AMPICILLIN SOD/SULBACTAM NA 3 G in SODIUM CHLORIDE 0.9% 100 ML IV SCH ×4 (03:56→20:52)
[2021-04-22] MEDS: GABAPENTIN SOLN 300MG/6ML UDC GT SCH ×3 (05:23→21:51)
[2021-04-22] MEDS: INSULIN LISPRO 100 UNITS/ML SUBCUT SCH ×4 (05:29→18:00)
[2021-04-22 05:54] LABS: HEMATOCRIT. 32.2 % (42.0-52.0); HEMOGLOBIN. 10.1 g/dL (14.0-18.0); MEAN CORPUSCULAR HEMOGLOBIN 25.8 pg (28.0-32.0); MEAN CORPUSCULAR VOLUME 82.5 fL (80.0-94.0); MEAN PLATELET VOLUME 8.4 fl (7.4-10.4); PLATELET 358 x1000/uL (130-400); RED CELL DISTRIBUTION WIDTH 21.2 % (11.6-14.6)
[2021-04-22 06:09] LABS: CHLORIDE 106 mEq/L (98-107)
[2021-04-22] MEDS: DOCUSATE SODIUM SUGAR FREE 100MG/10ML UDC NG SCH ×2 (08:55→17:57)
[2021-04-22] MEDS: METFORMIN HCL 500MG TABLET GT SCH ×2 (08:55→17:57)
[2021-04-22] MEDS: ENOXAPARIN 30MG/0.3ML SYR SUBCUT SCH ×2 (08:55→21:00)
[2021-04-22] MEDS: NITROFURANTOIN 100MG M/M CAPSULE PO SCH ×2 (08:55→20:53)
[2021-04-22] MEDS: QUETIAPINE FUMARATE 50MG TABLET PO SCH ×2 (08:55→20:53)
[2021-04-22] MEDS: METHYLPREDNISOLONE SOD SUCC 40 MG/ML VIAL IV SCH ×2 (08:55→20:53)
[2021-04-22] MEDS: BUPROPION HCL 75MG TABLET PO SCH ×2 (08:55→20:53)
[2021-04-22] MEDS: FAMOTIDINE 20MG TABLET GT SCH ×2 (08:55→20:53)
[2021-04-22] MEDS: ASCORBIC ACID 500 MG TABLET PO SCH ×2 (08:55→20:53)
[2021-04-22] MEDS: ZINC SULFATE 220 MG ( 50 ) CAPSULE GT SCH (08:55)
[2021-04-22] MEDS: MIDODRINE HCL 5MG TABLET PO SCH ×3 (08:56→17:00)
[2021-04-22] MEDS: COLISTIMETHATE SODIUM 150MG/VIAL INH SCH (09:00)
[2021-04-22 09:40] LABS: PLATELET ESTIMATE NORMAL
[2021-04-22 12:28] LABS: BG BASE EXCESS 8.4 mmol/L (-2.0-2.0); BG CARBOXYHEMOGLOBIN 0.5 % (0.5-1.5); BG DEOXYHEMOGLOBIN 15.5 % (0.0-5.0); BG HCO3 ACT 33.8 mmol/L (22.0-26.0); BG METHEMOGLOBIN 0.2 % (0.0-1.5); BG OXYGEN SATURATION 84.4 % (92.0-98.5); BG OXYHEMOGLOBIN 83.8 % (94.0-97.0); BG PCO2 50.6 mmHg (35.0-45.0); BG PH 7.442 (7.350-7.450); BG SAMPLE SITE RIGHT RADIAL; BG TOTAL HEMOGLOBIN 11.6 g/dL (12.0-18.0); BG VENT MODE VENT - AC
[2021-04-22] MEDS ORDERED: FUROSEMIDE 40MG/4ML VIAL IVP NR (12:45)
[2021-04-22] MEDS ORDERED: LACTULOSE 20G/30ML UDC PO NR (12:45)
[2021-04-22] MEDS: MONTELUKAST SODIUM 10MG TABLET PO SCH (17:58)
[2021-04-22] MEDS: ATORVASTATIN CALCIUM 10MG TABLET GT SCH (20:53)
[2021-04-22] MEDS: TRAZODONE HCL 50MG TABLET GT SCH (21:55)
[2021-04-23] VITALS (12 sets, daily range): BP systolic 83–121; BP diastolic 40–88
[2021-04-23] MEDS: ZOLPIDEM TARTRATE 5MG TABLET PO PRN (00:59)
[2021-04-23] MEDS: ACETYLCYSTEINE 100MG/ML 10% VIAL 4ML INH SCH ×3 (02:05→16:22)
[2021-04-23] MEDS: IPRATROPIUM/ALBUTEROL 0.5-3(2.5)MG/3ML NEB HHN SCH ×4 (02:05→20:49)
[2021-04-23] MEDS: AMPICILLIN SOD/SULBACTAM NA 3 G in SODIUM CHLORIDE 0.9% 100 ML IV SCH ×4 (03:24→20:13)
[2021-04-23] MEDS: GABAPENTIN SOLN 300MG/6ML UDC GT SCH ×3 (06:00→22:01)
[2021-04-23] MEDS: INSULIN LISPRO 100 UNITS/ML SUBCUT SCH ×5 (06:00→23:50)
[2021-04-23] MEDS: BLOOD SUGAR DIAGNOSTIC STRIP TEST SCH ×5 (06:27→23:50)
[2021-04-23 06:29] LABS: BASOPHILS % 0.2 % (0.0-2.0); EOSINOPHILS % 5.2 % (0.0-5.0); HEMATOCRIT. 35.2 % (42.0-52.0); HEMOGLOBIN. 10.6 g/dL (14.0-18.0); LYMPHOCYTES % 7.6 % (20.0-50.0); MEAN CORPUSCULAR HEMOGLOBIN 24.8 pg (28.0-32.0); MEAN CORPUSCULAR VOLUME 82.8 fL (80.0-94.0); MEAN PLATELET VOLUME 8.4 fl (7.4-10.4); MONOCYTES % 6.2 % (2.0-8.0); NEUTROPHILS % 80.8 % (40.0-76.0); PLATELET 403 x1000/uL (130-400); RED BLOOD CELL COUNT 4.25 mill/uL (4.7-6.1); RED CELL DISTRIBUTION WIDTH 21.8 % (11.6-14.6)
[2021-04-23 07:34] LABS: CHLORIDE 107 mEq/L (98-107)
[2021-04-23] MEDS: ENOXAPARIN 30MG/0.3ML SYR SUBCUT SCH (08:01)
[2021-04-23] MEDS: DOCUSATE SODIUM SUGAR FREE 100MG/10ML UDC NG SCH ×2 (09:00→17:00)
[2021-04-23 09:01] LABS: INR 1.1; PROTHROMBIN TIME 11.9 sec (9.6-11.0)
[2021-04-23] MEDS: MIDODRINE HCL 5MG TABLET PO SCH ×3 (09:17→18:44)
[2021-04-23] MEDS: METHYLPREDNISOLONE SOD SUCC 40 MG/ML VIAL IV SCH ×2 (09:17→20:14)
[2021-04-23] MEDS: ASCORBIC ACID 500 MG TABLET PO SCH ×2 (09:18→20:13)
[2021-04-23] MEDS: METFORMIN HCL 500MG TABLET GT SCH ×2 (09:18→18:45)
[2021-04-23] MEDS: BUPROPION HCL 75MG TABLET PO SCH ×2 (09:18→20:20)
[2021-04-23] MEDS: ZINC SULFATE 220 MG ( 50 ) CAPSULE GT SCH (09:18)
[2021-04-23] MEDS: QUETIAPINE FUMARATE 50MG TABLET PO SCH ×2 (09:18→20:13)
[2021-04-23] MEDS: FAMOTIDINE 20MG TABLET GT SCH ×2 (09:19→20:14)
[2021-04-23] MEDS: NITROFURANTOIN 100MG M/M CAPSULE PO SCH ×2 (09:19→20:13)
[2021-04-23] MEDS ORDERED: SODIUM BICARBONATE 4% (2.4MEQ) 5ML VIAL IV ONE (10:59)
[2021-04-23 12:42] LABS: BG BASE EXCESS 8.9 mmol/L (-2.0-2.0); BG CARBOXYHEMOGLOBIN 0.4 % (0.5-1.5); BG DEOXYHEMOGLOBIN 19.3 % (0.0-5.0); BG FRACTION INSPIRED OXYGEN 100; BG HCO3 ACT 34.6 mmol/L (22.0-26.0); BG METHEMOGLOBIN 0.3 % (0.0-1.5); BG OXYGEN SATURATION 80.6 % (92.0-98.5); BG PCO2 53.4 mmHg (35.0-45.0); BG PO2 48.3 mmHg (75.0-100.0); BG SAMPLE SITE RIGHT RADIAL; BG TOTAL HEMOGLOBIN 11.2 g/dL (12.0-18.0); BG VENT MODE VENT - APRV
[2021-04-23 17:59] LABS: BG BASE EXCESS 8.8 mmol/L (-2.0-2.0); BG CARBOXYHEMOGLOBIN 0.3 % (0.5-1.5); BG DEOXYHEMOGLOBIN 3.2 % (0.0-5.0); BG FRACTION INSPIRED OXYGEN 100; BG HCO3 ACT 33.9 mmol/L (22.0-26.0); BG METHEMOGLOBIN 0.3 % (0.0-1.5); BG OXYGEN SATURATION 96.8 % (92.0-98.5); BG OXYHEMOGLOBIN 96.2 % (94.0-97.0); BG PH 7.458 (7.350-7.450); BG PO2 100.5 mmHg (75.0-100.0); BG SAMPLE SITE RIGHT BRACHIAL; BG TOTAL HEMOGLOBIN 11.1 g/dL (12.0-18.0); BG VENT MODE VENT - AC
[2021-04-23] MEDS: MONTELUKAST SODIUM 10MG TABLET PO SCH (18:45)
[2021-04-23] MEDS: TRAZODONE HCL 50MG TABLET GT SCH (20:13)
[2021-04-23] MEDS: ATORVASTATIN CALCIUM 10MG TABLET GT SCH (20:28)
[2021-04-23] MEDS: COLISTIMETHATE SODIUM 150MG/VIAL INH SCH (20:59)
[2021-04-23] MEDS: INSULIN GLARGINE UD 100 UNITS/ML SYR SUBCUT SCH (22:18)
[2021-04-24] VITALS (12 sets, daily range): BP systolic 81–119; BP diastolic 40–66
[2021-04-24] MEDS: IPRATROPIUM/ALBUTEROL 0.5-3(2.5)MG/3ML NEB HHN SCH ×4 (01:37→20:41)
[2021-04-24] MEDS: ACETYLCYSTEINE 100MG/ML 10% VIAL 4ML INH SCH ×3 (01:38→16:43)
[2021-04-24] MEDS: AMPICILLIN SOD/SULBACTAM NA 3 G in SODIUM CHLORIDE 0.9% 100 ML IV SCH ×4 (02:13→20:20)
[2021-04-24] MEDS: INSULIN LISPRO 100 UNITS/ML SUBCUT SCH ×4 (05:39→23:34)
[2021-04-24] MEDS: GABAPENTIN SOLN 300MG/6ML UDC GT SCH ×3 (05:39→21:51)
[2021-04-24] MEDS: BLOOD SUGAR DIAGNOSTIC STRIP TEST SCH ×4 (05:40→23:34)
[2021-04-24 05:44] LABS: CHLORIDE 106 mEq/L (98-107)
[2021-04-24 06:40] LABS: HEMATOCRIT 32.5 % (42.0-52.0); MEAN CORPUSCULAR HEMOGLOBIN 25.7 pg (28.0-32.0); MEAN CORPUSCULAR VOLUME 83.8 fL (80.0-94.0); PLATELET 324 x1000/uL (130-400); RED BLOOD CELL COUNT 3.87 mill/uL (4.7-6.1); RED CELL DISTRIBUTION WIDTH 21.8 % (11.6-14.6)
[2021-04-24] MEDS: DOCUSATE SODIUM SUGAR FREE 100MG/10ML UDC NG SCH ×2 (09:00→16:11)
[2021-04-24] MEDS: METHYLPREDNISOLONE SOD SUCC 40 MG/ML VIAL IV SCH ×2 (10:01→20:21)
[2021-04-24] MEDS: NITROFURANTOIN 100MG M/M CAPSULE PO SCH ×2 (10:01→20:21)
[2021-04-24] MEDS: FAMOTIDINE 20MG TABLET GT SCH ×2 (10:02→20:31)
[2021-04-24] MEDS: QUETIAPINE FUMARATE 50MG TABLET PO SCH ×2 (10:02→20:21)
[2021-04-24] MEDS: MIDODRINE HCL 5MG TABLET PO SCH ×3 (10:02→17:17)
[2021-04-24] MEDS: ZINC SULFATE 220 MG ( 50 ) CAPSULE GT SCH (10:02)
[2021-04-24] MEDS: METFORMIN HCL 500MG TABLET GT SCH ×2 (10:03→17:17)
[2021-04-24] MEDS: BUPROPION HCL 75MG TABLET PO SCH ×2 (10:03→20:21)
[2021-04-24] MEDS: ASCORBIC ACID 500 MG TABLET PO SCH ×2 (10:04→20:21)
[2021-04-24] MEDS: ACETAMINOPHEN 325MG TABLET PO PRN (13:16)
[2021-04-24] MEDS: MONTELUKAST SODIUM 10MG TABLET PO SCH (17:17)
[2021-04-24] MEDS: TRAZODONE HCL 50MG TABLET GT SCH (20:20)
[2021-04-24] MEDS: ATORVASTATIN CALCIUM 10MG TABLET GT SCH (20:20)
[2021-04-24] MEDS: INSULIN GLARGINE UD 100 UNITS/ML SYR SUBCUT SCH (21:38)
[2021-04-24] MEDS: ONDANSETRON HCL 4MG/2ML INJ IV PRN (23:34)
[2021-04-25] VITALS (12 sets, daily range): BP systolic 82–114; BP diastolic 51–68
[2021-04-25] MEDS: IPRATROPIUM/ALBUTEROL 0.5-3(2.5)MG/3ML NEB HHN SCH ×4 (00:21→20:45)
[2021-04-25] MEDS: AMPICILLIN SOD/SULBACTAM NA 3 G in SODIUM CHLORIDE 0.9% 100 ML IV SCH ×4 (03:22→21:21)
[2021-04-25] MEDS: GABAPENTIN SOLN 300MG/6ML UDC GT SCH ×3 (05:35→21:21)
[2021-04-25] MEDS: INSULIN LISPRO 100 UNITS/ML SUBCUT SCH ×4 (05:36→23:07)
[2021-04-25] MEDS: BLOOD SUGAR DIAGNOSTIC STRIP TEST SCH ×4 (05:37→23:07)
[2021-04-25 06:29] LABS: HEMATOCRIT 33.3 % (42.0-52.0); HEMOGLOBIN 10.3 g/dL (14.0-18.0); MEAN CORPUSCULAR HEMOGLOBIN 25.9 pg (28.0-32.0); MEAN CORPUSCULAR VOLUME 83.3 fL (80.0-94.0); PLATELET 348 x1000/uL (130-400); RED CELL DISTRIBUTION WIDTH 21.7 % (11.6-14.6)
[2021-04-25 07:24] LABS: CHLORIDE 104 mEq/L (98-107)
[2021-04-25] MEDS: DOCUSATE SODIUM SUGAR FREE 100MG/10ML UDC NG SCH ×2 (08:58→17:57)
[2021-04-25] MEDS: METHYLPREDNISOLONE SOD SUCC 40 MG/ML VIAL IV SCH (08:58)
[2021-04-25] MEDS: ASCORBIC ACID 500 MG TABLET PO SCH ×2 (08:58→21:21)
[2021-04-25] MEDS: QUETIAPINE FUMARATE 50MG TABLET PO SCH ×2 (08:59→21:21)
[2021-04-25] MEDS: BUPROPION HCL 75MG TABLET PO SCH ×2 (08:59→21:21)
[2021-04-25] MEDS: ZINC SULFATE 220 MG ( 50 ) CAPSULE GT SCH (08:59)
[2021-04-25] MEDS: METFORMIN HCL 500MG TABLET GT SCH ×2 (08:59→17:49)
[2021-04-25] MEDS: NITROFURANTOIN 100MG M/M CAPSULE PO SCH ×2 (09:00→21:21)
[2021-04-25] MEDS: MIDODRINE HCL 5MG TABLET PO SCH ×3 (09:00→17:49)
[2021-04-25] MEDS: FAMOTIDINE 20MG TABLET GT SCH ×2 (09:01→21:21)
[2021-04-25] MEDS: COLISTIMETHATE SODIUM 150MG/VIAL INH SCH ×2 (09:05→20:46)
[2021-04-25 10:15] LABS: BG BASE EXCESS 3.9 mmol/L (-2.0-2.0); BG CARBOXYHEMOGLOBIN 0.4 % (0.5-1.5); BG DEOXYHEMOGLOBIN 3.9 % (0.0-5.0); BG FRACTION INSPIRED OXYGEN 90; BG HCO3 ACT 29.2 mmol/L (22.0-26.0); BG METHEMOGLOBIN 0.3 % (0.0-1.5); BG OXYGEN SATURATION 96.1 % (92.0-98.5); BG OXYHEMOGLOBIN 95.4 % (94.0-97.0); BG PCO2 47.4 mmHg (35.0-45.0); BG PH 7.408 (7.350-7.450); BG SAMPLE SITE RIGHT RADIAL; BG TOTAL HEMOGLOBIN 11.4 g/dL (12.0-18.0); BG VENT MODE VENT - AC
[2021-04-25] MEDS: DOCUSATE SODIUM 100MG CAPSULE PO PRN (17:49)
[2021-04-25] MEDS: MONTELUKAST SODIUM 10MG TABLET PO SCH (17:49)
[2021-04-25] MEDS: TRAZODONE HCL 50MG TABLET GT SCH (21:21)
[2021-04-25] MEDS: ATORVASTATIN CALCIUM 10MG TABLET GT SCH (21:21)
[2021-04-25] MEDS: ENOXAPARIN 30MG/0.3ML SYR SUBCUT SCH (21:22)
[2021-04-25] MEDS: INSULIN GLARGINE UD 100 UNITS/ML SYR SUBCUT SCH (21:26)
[2021-04-26] VITALS (12 sets, daily range): BP systolic 81–142; BP diastolic 54–75
[2021-04-26] MEDS: ONDANSETRON HCL 4MG/2ML INJ IV PRN (01:19)
[2021-04-26] MEDS: ACETAMINOPHEN 325MG TABLET PO PRN (01:19)
[2021-04-26] MEDS: IPRATROPIUM/ALBUTEROL 0.5-3(2.5)MG/3ML NEB HHN SCH ×4 (01:50→20:21)
[2021-04-26] MEDS: BLOOD SUGAR DIAGNOSTIC STRIP TEST SCH ×3 (05:21→17:36)
[2021-04-26] MEDS: GABAPENTIN SOLN 300MG/6ML UDC GT SCH ×3 (05:22→21:03)
[2021-04-26] MEDS: INSULIN LISPRO 100 UNITS/ML SUBCUT SCH ×3 (05:30→17:39)
[2021-04-26] MEDS: QUETIAPINE FUMARATE 50MG TABLET PO SCH ×2 (08:33→21:03)
[2021-04-26] MEDS: ASCORBIC ACID 500 MG TABLET PO SCH ×2 (08:33→21:03)
[2021-04-26] MEDS: METFORMIN HCL 500MG TABLET GT SCH ×2 (08:33→17:18)
[2021-04-26] MEDS: ZINC SULFATE 220 MG ( 50 ) CAPSULE GT SCH (08:33)
[2021-04-26] MEDS: FAMOTIDINE 20MG TABLET GT SCH ×2 (08:33→21:03)
[2021-04-26] MEDS: MIDODRINE HCL 5MG TABLET PO SCH ×3 (08:34→16:56)
[2021-04-26] MEDS: BUPROPION HCL 75MG TABLET PO SCH ×2 (08:35→21:03)
[2021-04-26] MEDS: ENOXAPARIN 30MG/0.3ML SYR SUBCUT SCH ×2 (08:36→21:03)
[2021-04-26] MEDS: DOCUSATE SODIUM 100MG CAPSULE PO PRN ×3 (08:37→08:39)
[2021-04-26] MEDS: METHYLPREDNISOLONE SOD SUCC 40 MG/ML VIAL IV SCH (08:37)
[2021-04-26] MEDS: DOCUSATE SODIUM SUGAR FREE 100MG/10ML UDC NG SCH ×2 (08:42→16:55)
[2021-04-26] MEDS: COLISTIMETHATE SODIUM 150MG/VIAL INH SCH ×2 (09:10→20:22)
[2021-04-26 10:34] LABS: BG BASE EXCESS 5.9 mmol/L (-2.0-2.0); BG CARBOXYHEMOGLOBIN 0.3 % (0.5-1.5); BG DEOXYHEMOGLOBIN 1.8 % (0.0-5.0); BG FRACTION INSPIRED OXYGEN 80; BG METHEMOGLOBIN 0.2 % (0.0-1.5); BG OXYGEN SATURATION 98.2 % (92.0-98.5); BG OXYHEMOGLOBIN 97.7 % (94.0-97.0); BG PCO2 53.6 mmHg (35.0-45.0); BG PH 7.394 (7.350-7.450); BG PO2 137.6 mmHg (75.0-100.0); BG SAMPLE SITE RIGHT RADIAL; BG TOTAL HEMOGLOBIN 11.4 g/dL (12.0-18.0); BG VENT MODE VENT - AC
[2021-04-26] MEDS: AMPICILLIN SOD/SULBACTAM NA 3 G in SODIUM CHLORIDE 0.9% 100 ML IV SCH (16:56)
[2021-04-26] MEDS: MONTELUKAST SODIUM 10MG TABLET PO SCH (16:56)
[2021-04-26 17:11] LABS: HEMATOCRIT 35.2 % (42.0-52.0); HEMOGLOBIN 10.7 g/dL (14.0-18.0); MEAN CORPUSCULAR HEMOGLOBIN 24.8 pg (28.0-32.0); MEAN CORPUSCULAR VOLUME 81.5 fL (80.0-94.0); PLATELET 371 x1000/uL (130-400); RED BLOOD CELL COUNT 4.31 mill/uL (4.7-6.1); RED CELL DISTRIBUTION WIDTH 21.4 % (11.6-14.6)
[2021-04-26 17:22] LABS: CHLORIDE 107 mEq/L (98-107)
[2021-04-26] MEDS: ATORVASTATIN CALCIUM 10MG TABLET GT SCH (21:03)
[2021-04-26] MEDS: TRAZODONE HCL 50MG TABLET GT SCH (21:03)
[2021-04-26] MEDS: INSULIN GLARGINE UD 100 UNITS/ML SYR SUBCUT SCH (21:14)
[2021-04-27] VITALS (13 sets, daily range): BP systolic 79–126; BP diastolic 41–74
[2021-04-27] MEDS: AMPICILLIN SOD/SULBACTAM NA 3 G in SODIUM CHLORIDE 0.9% 100 ML IV SCH ×5 (00:13→21:35)
[2021-04-27] MEDS: BLOOD SUGAR DIAGNOSTIC STRIP TEST SCH ×5 (00:13→23:39)
[2021-04-27] MEDS: ONDANSETRON HCL 4MG/2ML INJ IV PRN (00:14)
[2021-04-27] MEDS: IPRATROPIUM/ALBUTEROL 0.5-3(2.5)MG/3ML NEB HHN SCH ×3 (00:36→21:39)
[2021-04-27] MEDS: GABAPENTIN SOLN 300MG/6ML UDC GT SCH ×3 (04:43→21:35)
[2021-04-27] MEDS: ACETAMINOPHEN 325MG TABLET PO PRN (04:44)
[2021-04-27] MEDS: INSULIN LISPRO 100 UNITS/ML SUBCUT SCH ×5 (05:45→23:39)
[2021-04-27 07:31] LABS: HEMATOCRIT 36.1 % (42.0-52.0); HEMOGLOBIN 10.9 g/dL (14.0-18.0); MEAN CORPUSCULAR HEMOGLOBIN 25.2 pg (28.0-32.0); MEAN CORPUSCULAR VOLUME 83.2 fL (80.0-94.0); PLATELET 375 x1000/uL (130-400); RED BLOOD CELL COUNT 4.34 mill/uL (4.7-6.1); RED CELL DISTRIBUTION WIDTH 21.6 % (11.6-14.6)
[2021-04-27 07:57] LABS: CHLORIDE 105 mEq/L (98-107)
[2021-04-27] MEDS: METHYLPREDNISOLONE SOD SUCC 40 MG/ML VIAL IV SCH ×3 (08:24→21:35)
[2021-04-27] MEDS: DOCUSATE SODIUM SUGAR FREE 100MG/10ML UDC NG SCH ×2 (08:24→17:27)
[2021-04-27] MEDS: METFORMIN HCL 500MG TABLET GT SCH ×2 (08:24→17:29)
[2021-04-27] MEDS: BUPROPION HCL 75MG TABLET PO SCH ×2 (08:25→21:35)
[2021-04-27] MEDS: ZINC SULFATE 220 MG ( 50 ) CAPSULE GT SCH (08:25)
[2021-04-27] MEDS: MIDODRINE HCL 5MG TABLET PO SCH ×3 (08:25→17:27)
[2021-04-27] MEDS: ASCORBIC ACID 500 MG TABLET PO SCH ×2 (08:25→21:35)
[2021-04-27] MEDS: FAMOTIDINE 20MG TABLET GT SCH ×2 (08:25→21:35)
[2021-04-27] MEDS: QUETIAPINE FUMARATE 50MG TABLET PO SCH ×2 (08:25→21:35)
[2021-04-27] MEDS: ENOXAPARIN 30MG/0.3ML SYR SUBCUT SCH ×2 (08:26→21:35)
[2021-04-27] MEDS: COLISTIMETHATE SODIUM 150MG/VIAL INH SCH (09:42)
[2021-04-27 10:26] LABS: BG BASE EXCESS 4.9 mmol/L (-2.0-2.0); BG CARBOXYHEMOGLOBIN 0.2 % (0.5-1.5); BG DEOXYHEMOGLOBIN 7.9 % (0.0-5.0); BG FRACTION INSPIRED OXYGEN 90; BG HCO3 ACT 30.8 mmol/L (22.0-26.0); BG METHEMOGLOBIN 0.5 % (0.0-1.5); BG OXYHEMOGLOBIN 91.4 % (94.0-97.0); BG PCO2 50.9 mmHg (35.0-45.0); BG PH 7.399 (7.350-7.450); BG PO2 69.5 mmHg (75.0-100.0); BG SAMPLE SITE RIGHT RADIAL; BG VENT MODE VENT - AC
[2021-04-27] MEDS ORDERED: FLUDROCORTISONE ACETATE 0.1MG TABLET PO SCH (12:00)
[2021-04-27 14:14] LABS: BG BASE EXCESS 3.6 mmol/L (-2.0-2.0); BG CARBOXYHEMOGLOBIN 0.6 % (0.5-1.5); BG DEOXYHEMOGLOBIN 6.6 % (0.0-5.0); BG FRACTION INSPIRED OXYGEN 100; BG METHEMOGLOBIN 0.3 % (0.0-1.5); BG OXYGEN SATURATION 93.3 % (92.0-98.5); BG OXYHEMOGLOBIN 92.5 % (94.0-97.0); BG PCO2 47.1 mmHg (35.0-45.0); BG PH 7.407 (7.350-7.450); BG PO2 73.7 mmHg (75.0-100.0); BG SAMPLE SITE RIGHT RADIAL; BG TOTAL HEMOGLOBIN 12.1 g/dL (12.0-18.0); BG VENT MODE VENT - AC
[2021-04-27] MEDS: MONTELUKAST SODIUM 10MG TABLET PO SCH (17:27)
[2021-04-27] MEDS: ATORVASTATIN CALCIUM 10MG TABLET GT SCH (21:35)
[2021-04-27] MEDS: TRAZODONE HCL 50MG TABLET GT SCH (21:35)
[2021-04-27] MEDS: INSULIN GLARGINE UD 100 UNITS/ML SYR SUBCUT SCH (21:46)
[2021-04-28] VITALS (8 sets, daily range): BP systolic 62–165; BP diastolic 29–114
[2021-04-28] MEDS: IPRATROPIUM/ALBUTEROL 0.5-3(2.5)MG/3ML NEB HHN SCH ×2 (00:31→04:42)
[2021-04-28 05:51] LABS: BG BASE EXCESS -10.3 mmol/L (-2.0-2.0); BG CARBOXYHEMOGLOBIN 0.6 % (0.5-1.5); BG DEOXYHEMOGLOBIN 19.8 % (0.0-5.0); BG FRACTION INSPIRED OXYGEN 100; BG HCO3 ACT 20.8 mmol/L (22.0-26.0); BG METHEMOGLOBIN 0.4 % (0.0-1.5); BG OXYHEMOGLOBIN 79.2 % (94.0-97.0); BG PCO2 72.2 mmHg (35.0-45.0); BG PH 7.078 (7.350-7.450); BG PO2 64.8 mmHg (75.0-100.0); BG SAMPLE SITE RIGHT RADIAL; BG TOTAL HEMOGLOBIN 13.5 g/dL (12.0-18.0); BG VENT MODE VENT - AC
[2021-04-28] MEDS ORDERED: SODIUM BICARBONATE 8.4% 1 MEQ/ML 50ML SYR IV ONE (06:11)
[2021-04-28] MEDS ORDERED: SODIUM BICARBONATE 8.4% 1 MEQ/ML 50ML SYR IV SCH (06:15)
[2021-04-28] MEDS ORDERED: DOPAMINE 400MG/250ML PREMIX 250 ML IV ONE (06:16)
[2021-04-28] MEDS ORDERED: DOPAMINE 400MG/250ML PREMIX 250 ML IV PRN (07:45)
[2021-04-28] MEDS ORDERED: SODIUM CHLORIDE 0.9% 10ML VIAL ONE (08:03)
[2021-04-28] MEDS ORDERED: ATROPINE SULFATE 1MG/10ML SYR ONE (08:03)
[2021-04-28] MEDS ORDERED: EPINEPHRINE 0.1MG/ML (1:10,000) 10ML SYR ONE (08:03)
== END 2021-04-28 07:15 | DRG 853 ==
LOC: 5EST 21:16
PROVIDERS: ADMIT Internal Medicine; ATTEND Internal Medicine
PROC: 5A1955Z Respiratory Ventilation, Greater than 96 Consecutive Hours (ICD-10-PCS; principal; 2021-04-12)
PROC: 0HBRXZZ Excision of Toe Nail, External Approach (ICD-10-PCS; 2021-04-16)
PROC: 0HBRXZZ Excision of Toe Nail, External Approach (ICD-10-PCS; 2021-04-16)
PROC: 0HBRXZZ Excision of Toe Nail, External Approach (ICD-10-PCS; 2021-04-16)
PROC: 0HBRXZZ Excision of Toe Nail, External Approach (ICD-10-PCS; 2021-04-16)
PROC: 0HBRXZZ Excision of Toe Nail, External Approach (ICD-10-PCS; 2021-04-16)
PROC: 0HBRXZZ Excision of Toe Nail, External Approach (ICD-10-PCS; 2021-04-16)
PROC: 0HBRXZZ Excision of Toe Nail, External Approach (ICD-10-PCS; 2021-04-16)
PROC: 0HBRXZZ Excision of Toe Nail, External Approach (ICD-10-PCS; 2021-04-16)
PROC: 0HBRXZZ Excision of Toe Nail, External Approach (ICD-10-PCS; 2021-04-16)
PROC: 0HBRXZZ Excision of Toe Nail, External Approach (ICD-10-PCS; 2021-04-16)
PROC: 0JBR0ZZ Excision of Left Foot Subcutaneous Tissue and Fascia, Open Approach (ICD-10-PCS; 2021-04-17)
PROC: 0W993ZZ Drainage of Right Pleural Cavity, Percutaneous Approach (ICD-10-PCS; 2021-04-23)
PROC: 0W9B3ZZ Drainage of Left Pleural Cavity, Percutaneous Approach (ICD-10-PCS; 2021-04-24)
PROC: 5A12012 Performance of Cardiac Output, Single, Manual (ICD-10-PCS; 2021-04-28)
PROC: 5A2204Z Restoration of Cardiac Rhythm, Single (ICD-10-PCS; 2021-04-28)
DX: A41.9 Sepsis, unspecified organism (principal); I50.33 Acute on chronic diastolic (congestive) heart failure; J15.0 Pneumonia due to Klebsiella pneumoniae; J96.21 Acute and chronic respiratory failure with hypoxia; J96.22 Acute and chronic respiratory failure with hypercapnia; J44.1 Chronic obstructive pulmonary disease with (acute) exacerbation; N39.0 Urinary tract infection, site not specified; Z99.11 Dependence on respirator [ventilator] status; D68.69 Other thrombophilia; J44.0 Chronic obstructive pulmonary disease with (acute) lower respiratory infection; L02.612 Cutaneous abscess of left foot; E66.01 Morbid (severe) obesity due to excess calories; I11.0 Hypertensive heart disease with heart failure; E11.621 Type 2 diabetes mellitus with foot ulcer; I46.9 Cardiac arrest, cause unspecified; D64.9 Anemia, unspecified; E78.00 Pure hypercholesterolemia, unspecified; E87.5 Hyperkalemia; I48.0 Paroxysmal atrial fibrillation; L97.529 Non-pressure chronic ulcer of other part of left foot with unspecified severity; K74.60 Unspecified cirrhosis of liver; K21.9 Gastro-esophageal reflux disease without esophagitis; Z20.822 Contact with and (suspected) exposure to COVID-19; E11.51 Type 2 diabetes mellitus with diabetic peripheral angiopathy without gangrene; L60.3 Nail dystrophy; L85.3 Xerosis cutis; R13.10 Dysphagia, unspecified; I08.1 Rheumatic disorders of both mitral and tricuspid valves; Z79.4 Long term (current) use of insulin; Z79.84 Long term (current) use of oral hypoglycemic drugs; Z79.899 Other long term (current) drug therapy; Z93.0 Tracheostomy status; Z93.1 Gastrostomy status
CPT/HCPCS: 32555; 36415; 36600; 71045; 71250; 78580; 80048; 80053; 80061; 81003; 82375; 82550; 82553; 82607; 82746; 82805; 82962; 83036; 83540; 83550; 83735; 83880; 84100; 84132; 84145; 84439; 84443; 84484; 85025; 85027; 87070; 87077; 87186; 87426; 88108; 92950; 93306; 93923; 93970; 94002; 94003; 94640; A6261; J0295; J0461; J0770; J1265; J1650; J1815; J1940; J1956; J2060; J2185; J2405; J2920; J3490; J7040; J7050; J7070; J7512; J7608; J7626